=== PATIENT | female | born 1980 | race Caucasian/White ===

== ENCOUNTER → 2019-07-02 14:19 | Outpatient (CLI) | payer OTHER, SELFPAY ==
--- NOTE | 2019-07-02 | DI.US.S_ITS ---
PROCEDURE: US OB >= 14 WEEKS FETUS INDICATIONS: 20 WEEK ANATOMICAL SURVEY OUTSIDE/PRIOR DATING DATA: Last menstrual period (LMP): 02/16/19. LMP-based estimated date of delivery (MARLENE): 11/24/19. First dating scan (date and location): Unknown date and location. Estimated date of delivery (MARLENE) from first dating scan: 11/22/19. TECHNIQUE: Real-time scanning was performed of the fetus, with image documentation and biometric measurements. Endovaginal scanning: None COMPARISON: None. FINDINGS: General: A single living intrauterine gestation is present. Presentation: Vertex Placenta: Placental position is anterior, without previa. Amniotic fluid index: 10.9 cm, normal range is 5-24 cm. heart rate: 149 beats per minute. Maternal cervical canal: 3.0 cm long. Normal lower limit is 2.5 c biometrics: Biparietal diameter: 4.1 cm, 18 weeks 3 days Head circumference: 16.1 cm, 18 weeks 6 days Abdominal circumference: 14.9 cm, 20 weeks one day Femur length: 3.0 cm, to 19 weeks 2 days Estimated gestational age from initial scan: Based on history given, 19 weeks 4 days Composite gestational age from present scan: 19 weeks one day Estimated weight and percentile: 303 g, 48 Measurement variability for biometric dating: +/- 7 days from 14 weeks to 15 weeks 6 days gestation, +/- 10 days from 16 weeks to 21 weeks 6 days gestation, +/- 2 weeks from 22 weeks to 27 weeks 6 days gestation, +/- 3 weeks for 28 weeks gestation or later. weight reference: 4500 g or EFW >90/95% is considered macrosomia or large for gestational age. EFW <10% is small for gestational age. EFW 5% or less is considered intra-uterine growth restriction. Anatomic survey: Neuro: Ventricles are non-dilated at less than 10 mm. Cisterna magna is normal at 3-11 mm. Cerebellum is normal in size and morphology. Nuchal skin fold: Normal at less than 6 mm between 14-21 weeks gestational age. Face: Nose and lips, facial profile are normal. Spine: No evidence for spina bifida. Heart: 4-chambered heart is present, with normal ventricular outflow tracts. Diaphragm: Diaphragm is intact. Stomach: Left-sided stomach is present. Kidneys: No hydronephrosis. Normal is less than 5 mm in 2nd trimester, less than 7 mm in 3rd trimester. Cord: 3-vessel cord has orthotopic insertion. Bladder: Normal in size. Extremities: All 4 extremities identified. IMPRESSION: 1. Living second trimester intrauterine with normal anatomical survey. 2. Unremarkable placenta. 3. Current ultrasound age is 19 weeks one day. Dictated by: Fabian Lora M.D. on 07/03/2019 at 18:54 Approved by: Fabian Lora M.D. on 07/03/2019 at 19:00
== END ==
PROVIDERS: Visit Provider Nurse Practitioner Obstetrics & Gynecology
DX: Z36.89 Encounter for other specified antenatal screening (principal); Z3A.19 19 weeks gestation of pregnancy
CPT/HCPCS: 76811

== ENCOUNTER 2019-07-17 19:38 | Outpatient (CLI) | payer OTHER, SELFPAY ==
--- NOTE | 2019-07-17 19:52 | DI.US.S_ITS ---
PROCEDURE: US OB TRANSVAGINAL INDICATIONS: PRE-TERM CONTRACTIONS OUTSIDE/PRIOR DATING DATA: Last menstrual period (LMP): 02/16/19. LMP-based estimated date of delivery (MARLENE): 11/24/19. First dating scan (date and location): Outside examination, not available. Estimated date of delivery (MARLENE) from first dating scan: 11/22/19. TECHNIQUE: Real-time scanning was performed of the fetus, with image documentation. Endovaginal scanning: Performed COMPARISON: [facility], OB >= 14 WEEKS FETUS, 07/02/2019, 14:27. FINDINGS: A single living intrauterine gestation is present. Presentation: Vertex. Placenta: Placental position is anterior, without previa. Amniotic fluid index: 8.8 cm, normal range is 5-24 cm. heart rate: 128 beats per minute. Maternal cervical canal: 3.8 cm long. Normal lower limit is 2.5 cm. Estimated gestational age from initial scan: 21 weeks 2 days. IMPRESSION: Single living intrauterine fetus in vertex presentation Normal cervical length measuring 3.8 cm as above Normal GERARDO Dictated by: Bill Pozo M.D. on 07/17/2019 at 21:02 Approved by: Bill Pozo M.D. on 07/17/2019 at 21:06
--- NOTE | 2019-07-17 20:09 | PM.OBTRLD ---
Visit Information Visit Information Date of evaluation: 07/17/19 Primary OB Provider: Supriya Latham On-call OB Provider: Chitra Madera Reason for Evaluation: Yes pre-term labor Comments/Additional reasons for admission: 38YO @ [id number] by LMP and 8wk US. Has 3cm CL on 19wk US. Has been feeling intermittent uterine cramping in the evenings that eases overnight. This evening the mild cramping was slightly stronger and now c/o pelvic pressure. NO VB or LOF. Has not had intercourse or anything in her vagina in the last 24 hours. Routine PN care w/ CNM w/ repeat CL US pending 07/30/19. next appt 07/30/19. PFSH Family History (Updated 07/17/19 @ 20:35 by Supriya Latham CNM) Mother Hypertension Father Cancer Review of Systems Review of Systems ROS: Yes All systems reviewed with the patient and are negative except as otherwise documented Exam Vital Signs (past 8 hours): BP 133/79, HR 98, T98F Temporal OB/External & Speculum: external exam normal and other (Os closed) Presentation: vertex Other: fFN collected, but not sent Objective Imaging OB US transvaginal cervical length: My impression: CL 3.8cm, GERARDO 8.8cm Labs Labs: UA pending, RN to call if abnormal. Evaluation Evaluation Baseline heart rate: 140 Diagnosis, Plan/Disposition Final Diagnosis (1) contractions: Current Visit: Yes Status: Acute Problem details: None seen on monitor and CL stable, labor ruled out. Plan/Disposition Plan: Counseled on stable cervical length and setting this as her new baseline normal. Encouraged her to call if contractions strengthen or become more frequent. Reviewed warning sx and when to call. RTC as previously scheduled. OB Disposition: home
[2019-07-17 20:53] LABS: Appearance Urine UA CLEAR; Bilirubin Urine UA NEGATIVE (NEGATIVE); Color Urine UA YELLOW; Glucose Urine UA NEGATIVE (Negative); Ketones Urine UA NEGATIVE (NEGATIVE); Leukocyte Esterase Urine UA NEGATIVE (NEGATIVE); Nitrite Urine UA NEGATIVE (Negative); Occult Blood Urine UA NEGATIVE (Negative); Protein Urine UA NEGATIVE (Negative); Urobilinogen Urine UA 0.2 E.U./dL (0.2)
== END 2019-07-17 21:00 | disposition home or self-care (01) ==
LOC: OB 07-20 11:31
PROVIDERS: Referring Provider Nurse Practitioner Obstetrics & Gynecology; Visit Provider Nurse Practitioner Obstetrics & Gynecology
DX: O47.02 False labor before 37 completed weeks of gestation, second trimester (principal); Z3A.21 21 weeks gestation of pregnancy
CPT/HCPCS: 59050; 76817; 81003; G0378; G0379

== ENCOUNTER → 2019-07-30 09:01 | Outpatient (CLI) | payer OTHER, SELFPAY ==
--- NOTE | 2019-07-30 | DI.US.S_ITS ---
PROCEDURE: US OB TRANSVAGINAL INDICATIONS: CERVICAL LENGTH OUTSIDE/PRIOR DATING DATA: Last menstrual period (LMP): 02/16/19. LMP-based estimated date of delivery (MARLENE): 11/24/19. First dating scan (date and location): Unknown date and location. Estimated date of delivery (MARLENE) from first dating scan: 11/22/19. TECHNIQUE: Real-time scanning was performed of the fetus, with image documentation. Endovaginal scanning: Was done for better visualization of the cervix COMPARISON: [facility], OB TRANSVAGINAL, 07/17/2019, 20:12. [facility], OB >= 14 WEEKS FETUS, 07/02/2019, 14:27. FINDINGS: A single live intrauterine gestation is present. Presentation: Vertex. heart rate: 147 beats per minute. Maternal cervical canal: 4 cm long. Normal lower limit is 2.5 cm. Estimated gestational age from initial scan: 23 weeks 1 day. IMPRESSION: The cervix measures 4 cm. Dictated by: Armando Hodge M.D. on 07/30/2019 at 9:40 Approved by: Armando Hodge M.D. on 07/30/2019 at 9:42
== END ==
PROVIDERS: Referring Provider Nurse Practitioner Obstetrics & Gynecology; Visit Provider Nurse Practitioner Obstetrics & Gynecology
DX: Z36.86 Encounter for antenatal screening for cervical length (principal); Z3A.23 23 weeks gestation of pregnancy
CPT/HCPCS: 76817

== ENCOUNTER → 2019-08-24 08:54 | Outpatient (CLI) | payer OTHER, SELFPAY ==
[2019-08-24 09:49] LABS: Hematocrit 35.3 % (36-46); Hemoglobin 11.9 g/dL (12.0-16.0); Mean Corpuscular HGB Conc 33.7 % (30-36); Mean Corpuscular Hemoglobin 29.2 PG (26-34); Mean Corpuscular Volume 86.7 fL (80-100); Platelet Count 317 X10^3/uL (150-400); Red Blood Cell Count 4.07 X10^6/uL (4.0-5.2); Red Cell Distribution Width 13.1 % (11.6-14.8); White Blood Cell Count 12.7 X10^3/uL (4.5-11.0)
[2019-08-24 11:19] LABS: Glucose Tol Interpretation INTERPRETATION
[2019-08-24 11:36] LABS: Glucose 1 Hour 167 mg/dL (70-170)
[2019-08-24 11:36] LABS: Glucose Fasting 90 mg/dL (70-100)
[2019-08-24 12:39] LABS: Glucose 2 Hour 118 mg/dL (70-140)
== END ==
PROVIDERS: Referring Provider Nurse Practitioner Obstetrics & Gynecology; Visit Provider Nurse Practitioner Obstetrics & Gynecology
DX: Z34.90 Encounter for supervision of normal pregnancy, unspecified, unspecified trimester (principal); Z13.1 Encounter for screening for diabetes mellitus; Z3A.26 26 weeks gestation of pregnancy
CPT/HCPCS: 36415; 82951; 82952; 85027; 86850

== ENCOUNTER → 2019-10-27 12:03 | Outpatient (CLI) | payer OTHER, SELFPAY ==
--- NOTE | 2019-10-27 | DI.US.S_ITS ---
PROCEDURE: US OB LIMITED INDICATIONS: SIZE GREATER THEN DATES OUTSIDE/PRIOR DATING DATA: Last menstrual period (LMP): 02/16/19. LMP-based estimated date of delivery (MARLENE): 11/24/19. First dating scan (date and location): Not available. Estimated date of delivery (MARLENE) from first dating scan: Not available. TECHNIQUE: Real-time scanning was performed of the fetus, with image documentation and biometric measurements. Endovaginal scanning: Not needed for this study COMPARISON: None. FINDINGS: General: A single living intrauterine gestation is present. Presentation: Vertex. Placenta: Placental position is anterior, without previa. Amniotic fluid index: 17.5 cm, normal range is 5-24 cm. heart rate: 165 beats per minute. Maternal cervical canal: 3.3 cm long. Normal lower limit is 2.5 cm. biometrics: Biparietal diameter: 8.3 cm, 33 weeks 5 days Head circumference: 31.4 cm, 35 weeks 4 days Abdominal circumference: 32.9 cm, 36 weeks 5 days Femur length: 6.9 cm, 35 weeks 5 days Estimated gestational age from initial scan: 35 weeks 6 days Composite gestational age from present scan: 35 weeks 3 days Estimated weight and percentile: 2830 g, 55th percentile for current gestational age Measurement variability for biometric dating: +/- 7 days from 14 weeks to 15 weeks 6 days gestation, +/- 10 days from 16 weeks to 21 weeks 6 days gestation, +/- 2 weeks from 22 weeks to 27 weeks 6 days gestation, +/- 3 weeks for 28 weeks gestation or later. weight reference: 4500 g or EFW >90/95% is considered macrosomia or large for gestational age. EFW <10% is small for gestational age. EFW 5% or less is considered intra-uterine growth restriction. Other: Not applicable. IMPRESSION: Single living intrauterine gestation with appropriate interval growth, with normal amniotic fluid volume. Vertex presentation, anterior placenta. Dictated by: Felipe Neves M.D. on 10/27/2019 at 14:07 Approved by: Felipe Neves M.D. on 10/27/2019 at 14:10
== END ==
PROVIDERS: Referring Provider Nurse Practitioner Obstetrics & Gynecology; Visit Provider Nurse Practitioner Obstetrics & Gynecology
DX: Z36.88 Encounter for antenatal screening for fetal macrosomia (principal); Z3A.35 35 weeks gestation of pregnancy
CPT/HCPCS: 76815

== ENCOUNTER → 2019-10-28 13:48 | Outpatient (ROUT) | payer OTHER, SELFPAY | PROVIDERS: Visit Provider Nurse Practitioner Obstetrics & Gynecology | DX: Z36.85 Encounter for antenatal screening for Streptococcus B (principal); Z3A.36 36 weeks gestation of pregnancy | CPT/HCPCS: 87081 ==

== ENCOUNTER 2019-10-28 14:01 | Outpatient (CLI) | payer OTHER, SELFPAY ==
[2019-10-28 14:37] LABS: Add Manual Diff / Slide Review NO; Basophils Absolute Auto 100 /uL (0-100); Basophils Percent Auto 0.6 % (0-2); Eosinophils Absolute Auto 200 /uL (0-450); Eosinophils Percent Auto 1.9 % (2-4); Hematocrit 34.9 % (36-46); Hemoglobin 11.7 g/dL (12.0-16.0); Lymphocytes Absolute Auto 2700 /uL (1100-4500); Mean Corpuscular HGB Conc 33.4 % (30-36); Mean Corpuscular Hemoglobin 28.6 PG (26-34); Mean Corpuscular Volume 85.7 fL (80-100); Monocytes Absolute Auto 600 /uL (0-900); Monocytes Percent Auto 6.8 % (3-14); Neutrophils Absolute Auto 5000 /uL (1500-7000); Neutrophils Percent Auto 58.7 % (50-75); Platelet Count 232 X10^3/uL (150-400); Red Blood Cell Count 4.08 X10^6/uL (4.0-5.2); Red Cell Distribution Width 14.5 % (11.6-14.8); White Blood Cell Count 8.6 X10^3/uL (4.5-11.0)
[2019-10-28 14:44] LABS: Prothrombin Time 11.1 SECONDS (10.1-12.7)
[2019-10-28 14:46] LABS: PTT Partial Thromboplastin Tim 27 SECONDS (26.4-36.2)
[2019-10-28 14:49] LABS: Alanine Aminotransferase 17 IU/L (<35); Albumin 3.4 g/dL (3.5-5.0); Albumin Globulin Ratio 1.1 (1.0-2.8); Alkaline Phosphatase 250 U/L (38-126); Aspartate Aminotransferase 31 IU/L (14-36); BUN Creatinine Ratio 18.9 (6-22); Bilirubin Total 0.3 mg/dL (0.2-1.3); Bilirubin Unconjugated 0.2 mg/dL (0.0-1.1); Blood Urea Nitrogen 14 mg/dL (7-17); Calcium 9.8 mg/dL (8.4-10.2); Carbon Dioxide 21 mmol/L (22-32); Chloride 105 mmol/L (98-107); Estimated Glomerular Filt Rate > 60.0 mL/min (>60); Globulin 3.2 g/dL (1.7-4.1); Glucose 99 mg/dL (70-100); HEMOLYSIS < 15 (0-50); Potassium 4.4 mmol/L (3.4-5.1); Sodium 133 mmol/L (137-145); Total Protein 6.6 g/dL (6.3-8.2); Uric Acid 7.1 mg/dL (2.5-6.2)
[2019-10-28 15:13] LABS: Appearance Urine UA CLEAR; Bilirubin Urine UA NEGATIVE (NEGATIVE); Color Urine UA YELLOW; Glucose Urine UA NEGATIVE (Negative); Ketones Urine UA NEGATIVE (NEGATIVE); Leukocyte Esterase Urine UA 1+ (NEGATIVE); Nitrite Urine UA NEGATIVE (Negative); Occult Blood Urine UA TRACE-INTACT (Negative); Protein Urine UA 1+ (Negative); Urobilinogen Urine UA 0.2 E.U./dL (0.2)
[2019-10-28 15:28] LABS: pH Urine UA 5.5 (4.5-8.0)
[2019-10-28 15:30] LABS: Bacteria Urine Moderate (10-30); RBC Urine 0-1/HPF (0-5/HPF); Transitional Epi Cells Urine 1-5/HPF (0-5/HPF)
[2019-10-28 15:31] LABS: Culture Indicated Urine Specimen Cultured; Squamous Epithelial Cell Urine 1-5 /HPF (0-5/HPF); WBC Urine 5-10/HPF (0-5/HPF)
--- NOTE | 2019-10-28 15:31 | PM.OBTRLD ---
Visit Information Visit Information Date of evaluation: 10/28/19 Primary OB Provider: Supriya Latham On-call OB Provider: Steffi Ruth Reason for Evaluation: Yes other Comments/Additional reasons for admission: 38YO @[id number] by LMP and 8wk US presents for evaluation after elevated BPs in clinic. No AVELAR, vision changes, RUQ pain or increased edema. PFSH Family History Mother Hypertension Father Cancer Review of Systems Review of Systems ROS: Yes All systems reviewed with the patient and are negative except as otherwise documented Exam Vital Signs (past 8 hours): Serial BPs: 142/90, 137/83, 131/80, 174/86, 121/69; HR 71bpm, T36.3C Temporal Uterus Location (Fundal Height): 38 Presentation: vertex Estimated Weight (lbs): 6 Objective Labs Result Diagrams: 10/28/19 14:28 10/28/19 14:28 Labs: Laboratory Results - last 24 hr 10/28/19 10/28/19 10/28/19 14:28 14:28 14:28 WBC 8.6 RBC 4.08 Hgb 11.7 L Hct 34.9 L MCV 85.7 MCH 28.6 MCHC 33.4 RDW 14.5 Plt Count 232 Neut % (Auto) 58.7 Lymph % (Auto) 32.0 [place] % (Auto) 6.8 Eos % (Auto) 1.9 L Baso % (Auto) 0.6 Neut # (Auto) 5000 Lymph # (Auto) 2700 [place] # (Auto) 600 Eos # (Auto) 200 Baso # (Auto) 100 PT 11.1 INR 1.0 APTT 27 Sodium 133 L Potassium 4.4 Chloride 105 Carbon Dioxide 21 L BUN 14 Creatinine 0.74 Estimated GFR > 60.0 BUN/Creatinine Ratio 18.9 Glucose 99 Uric Acid 7.1 H Calcium 9.8 Total Bilirubin 0.3 Conjugated Bilirubin 0.0 Unconjugated Bilirubin 0.2 AST 31 ALT 17 Alkaline Phosphatase 250 H Total Protein 6.6 Albumin 3.4 L Globulin 3.2 Albumin/Globulin Ratio 1.1 Urine Color Urine Appearance Urine pH Ur Specific [place] Urine Protein Urine Glucose (UA) Urine Ketones Urine Occult Blood Urine Nitrate Urine Bilirubin Urine Urobilinogen Ur Leukocyte Esterase Urine RBC Urine WBC Ur Squamous Epith Cells Ur Transition Epith Cell Urine Bacteria Ur Culture Indicated? 10/28/19 14:50 WBC RBC Hgb Hct MCV MCH MCHC RDW Plt Count Neut % (Auto) Lymph % (Auto) [place] % (Auto) Eos % (Auto) Baso % (Auto) Neut # (Auto) Lymph # (Auto) [place] # (Auto) Eos # (Auto) Baso # (Auto) PT INR APTT Sodium Potassium Chloride Carbon Dioxide BUN Creatinine Estimated GFR BUN/Creatinine Ratio Glucose Uric Acid Calcium Total Bilirubin Conjugated Bilirubin Unconjugated Bilirubin AST ALT Alkaline Phosphatase Total Protein Albumin Globulin Albumin/Globulin Ratio Urine Color Yellow Urine Appearance Clear Urine pH 5.5 Ur Specific [place] 1.020 Urine Protein 1+ H Urine Glucose (UA) Negative Urine Ketones Negative Urine Occult Blood Trace-intact Urine Nitrate Negative Urine Bilirubin Negative Urine Urobilinogen 0.2 Ur Leukocyte Esterase 1+ H Urine RBC 0-1/hpf Urine WBC 5-10/hpf H Ur Squamous Epith Cells 1-5 /hpf Ur Transition Epith Cell 1-5/hpf Urine Bacteria Moderate (10-30) H Ur Culture Indicated? Specimen cultured Evaluation Evaluation Baseline heart rate: 135 Variability: Moderate (11-25) monitor accelerations: Present monitor decelerations: Absent Contraction Frequency (minutes): 15 Uterine Contraction Intensity: Mild Category of Tracing: I Cervical dilation (cm): 1 Cervical effacement (%): 40 station: -3 Laboratory results: Laboratory Tests 10/28/19 10/28/19 10/28/19 14:28 14:28 14:28 WBC 8.6 RBC 4.08 Hgb 11.7 L Hct 34.9 L MCV 85.7 MCH 28.6 MCHC 33.4 RDW 14.5 Plt Count 232 Neut % (Auto) 58.7 Lymph % (Auto) 32.0 [place] % (Auto) 6.8 Eos % (Auto) 1.9 L Baso % (Auto) 0.6 Neut # (Auto) 5000 Lymph # (Auto) 2700 [place] # (Auto) 600 Eos # (Auto) 200 Baso # (Auto) 100 PT 11.1 INR 1.0 APTT 27 Sodium 133 L Potassium 4.4 Chloride 105 Carbon Dioxide 21 L BUN 14 Creatinine 0.74 Estimated GFR > 60.0 BUN/Creatinine Ratio 18.9 Glucose 99 Uric Acid 7.1 H Calcium 9.8 Total Bilirubin 0.3 Conjugated Bilirubin 0.0 Unconjugated Bilirubin 0.2 AST 31 ALT 17 Alkaline Phosphatase 250 H Total Protein 6.6 Albumin 3.4 L Globulin 3.2 Albumin/Globulin Ratio 1.1 Urine Color Urine Appearance Urine pH Ur Specific [place] Urine Protein Urine Glucose (UA) Urine Ketones Urine Occult Blood Urine Nitrate Urine Bilirubin Urine Urobilinogen Ur Leukocyte Esterase Urine RBC Urine WBC Ur Squamous Epith Cells Ur Transition Epith Cell Urine Bacteria Ur Culture Indicated? 10/28/19 14:50 WBC RBC Hgb Hct MCV MCH MCHC RDW Plt Count Neut % (Auto) Lymph % (Auto) [place] % (Auto) Eos % (Auto) Baso % (Auto) Neut # (Auto) Lymph # (Auto) [place] # (Auto) Eos # (Auto) Baso # (Auto) PT INR APTT Sodium Potassium Chloride Carbon Dioxide BUN Creatinine Estimated GFR BUN/Creatinine Ratio Glucose Uric Acid Calcium Total Bilirubin Conjugated Bilirubin Unconjugated Bilirubin AST ALT Alkaline Phosphatase Total Protein Albumin Globulin Albumin/Globulin Ratio Urine Color Yellow Urine Appearance Clear Urine pH 5.5 Ur Specific [place] 1.020 Urine Protein 1+ H Urine Glucose (UA) Negative Urine Ketones Negative Urine Occult Blood Trace-intact Urine Nitrate Negative Urine Bilirubin Negative Urine Urobilinogen 0.2 Ur Leukocyte Esterase 1+ H Urine RBC 0-1/hpf Urine WBC 5-10/hpf H Ur Squamous Epith Cells 1-5 /hpf Ur Transition Epith Cell 1-5/hpf Urine Bacteria Moderate (10-30) H Ur Culture Indicated? Specimen cultured Diagnosis, Plan/Disposition Final Diagnosis (1) Elevated blood pressure reading in office with diagnosis of hypertension: Status: Acute Problem details: Counseled patient on likely developing pre-eclampsia w/ recommendation for IOL @ 37wks if diagnosis made. No diagnosis today with BPs that trended to normal. Home BP cuff given with instructions for use. Reviewed warning sx and when to call. F/U in 3 days, as scheduled, for repeat BP check in office. Plan/Disposition OB Disposition: home
[2019-10-28 15:59] LABS: Creatinine Urine Random 100.9 mg/dL; Protein (Total) Urine Random 72 mg/dL (0-12); Protein Creatinine Ratio Urine 0.71 GRAM/24H
== END 2019-10-28 15:55 | disposition home or self-care (01) ==
LOC: LABOR 19:43 → OB 10-30 12:43
PROVIDERS: Referring Provider Nurse Practitioner Obstetrics & Gynecology; Visit Provider Nurse Practitioner Obstetrics & Gynecology
DX: O26.893 Other specified pregnancy related conditions, third trimester (principal); Z3A.38 38 weeks gestation of pregnancy; R03.0 Elevated blood-pressure reading, without diagnosis of hypertension
CPT/HCPCS: 36415; 59025; 80053; 80076; 81001; 82570; 84156; 84550; 85025; 85610; 85730; 87081; 87086; G0378; G0379

== ENCOUNTER → 2019-10-31 13:03 | Outpatient (ROUT) | payer OTHER, SELFPAY ==
[2019-10-31 13:16] LABS: Add Manual Diff / Slide Review NO; Basophils Absolute Auto 0 /uL (0-100); Basophils Percent Auto 0.4 % (0-2); Eosinophils Absolute Auto 200 /uL (0-450); Eosinophils Percent Auto 2.9 % (2-4); Hematocrit 36.6 % (36-46); Hemoglobin 12.1 g/dL (12.0-16.0); Lymphocytes Absolute Auto 2800 /uL (1100-4500); Lymphocytes Percent Auto 32.1 % (25-40); Mean Corpuscular HGB Conc 33.1 % (30-36); Mean Corpuscular Hemoglobin 28.5 PG (26-34); Mean Corpuscular Volume 86.3 fL (80-100); Monocytes Absolute Auto 500 /uL (0-900); Monocytes Percent Auto 5.2 % (3-14); Neutrophils Absolute Auto 5100 /uL (1500-7000); Neutrophils Percent Auto 59.4 % (50-75); Platelet Count 251 X10^3/uL (150-400); Red Blood Cell Count 4.24 X10^6/uL (4.0-5.2); Red Cell Distribution Width 14.4 % (11.6-14.8); White Blood Cell Count 8.6 X10^3/uL (4.5-11.0)
[2019-10-31 13:35] LABS: Aspartate Aminotransferase 36 IU/L (14-36); BUN Creatinine Ratio 20.8 (6-22); Blood Urea Nitrogen 16 mg/dL (7-17); Estimated Glomerular Filt Rate > 60.0 mL/min (>60); Uric Acid 8.1 mg/dL (2.5-6.2)
[2019-10-31 14:46] LABS: Creatinine Urine Random 67.3 mg/dL; Protein (Total) Urine Random 79 mg/dL (0-12); Protein Creatinine Ratio Urine 1.17 GRAM/24H
== END ==
PROVIDERS: Visit Provider Nurse Practitioner Obstetrics & Gynecology
DX: O26.893 Other specified pregnancy related conditions, third trimester (principal); R03.0 Elevated blood-pressure reading, without diagnosis of hypertension; Z3A.36 36 weeks gestation of pregnancy
CPT/HCPCS: 82570; 84156; 84450; 84550; 85025

== ENCOUNTER 2019-11-02 18:10 | Inpatient (IN) | payer OTHER, SELFPAY ==
--- NOTE | 2019-11-02 18:57 | PM.OBHP.1 ---
OB HPI Date/Time Date of admission: 11/02/19 Date Patient Seen: 11/02/19 Time Patient Seen: 18:30 History of Present Condition Chief complaint: : 2 Para: 0 Estimated Date of Delivery: 11/24/19 Estimated Gestational Age (weeks): 36.6 Narrative: Zeechalo Hobbs is a 38 year old female @ [id number] by sure LMP and 8wk US who presents for admission for cervical ripening for IOL 11/03/19 @ 37wks. was uncomplicated until BPs began rising @ 36wks w/ diagnosis of preeclampsia and started on labetalol 10/31/2019 w/ a consultation w/ at that time. Indications Indication for induction OB: medical complication History of Present care: good care Dating criteria: LMP confirmed by 1st trimester US Ultrasounds: normal mid trimester US Obstetrical complications: preeclampsia Preadmission Labs Blood type: 0 (-) negative -: Antibody screen: negative, GBS status: negative, HBsAG: negative, HIV: negative and RPR/VDLR: negative -: Chlamydia screen: not detected and Gonorrhea screen: not detected -: Rubella: immune HCT: 35.3 HCAB: negative Cell-free DNA: negative, female 3 hr GTT: 2 hr (90/167/118) Narrative: 10/27/2019: Normal 36wk growth US for S>D- Vertex, GERARDO 17.5cm, anterior placenta without previa, EFW 2830grams/55th% Prior (ies) History: 12/21/2018- SAB @ 6wks Evaluation Evaluation Baseline heart rate: 140 Variability: Moderate (11-25) monitor accelerations: Absent monitor decelerations: Absent Contraction Frequency (minutes): 0 Uterine Contraction Intensity: Mild Category of Tracing: I Cervical dilation (cm): 1 Cervical effacement (%): 40 station: -3 PFSH Family History Mother Hypertension Father Cancer Meds Home Medications and Allergies Home Medications Medication Instructions Recorded Confirmed Type labetalol 11/02/19 History Allergies Allergy/AdvReac Type Severity Reaction Status Date / Time cephalexin Allergy Mild rash Verified 11/02/19 19:09 Review of Systems Review of Systems ROS: Yes All systems reviewed with the patient and are negative except as otherwise documented Exam Vital Signs (past 8 hours): BP 134/90, HR-93bpm, T96.8F Temporal Presentation: vertex Objective Labs Labs: Preeclampsia panel from 10/31/19: Hgb/Hct-12.1/36.3 Plt-251 Creatinine-0.77 Uric acid-8.1 AST-36 Pr:Cr-1.17 Assessment and Plan Assessment and Plan Assessment and Plan narrative: A: Term primipara AMA Preeclampsia No indication for GBS prophylaxis Cat I FHR P: Informed consent for IOL for preeclampsia obtained. Patient unable to tolerate cervical exam or meza balloon placement. Will place Cervadil overnight and encourage rest. Continuous EFM w/ Cervadil. Continue labetalol 100mg PO BID. Labs and IV @ 0600 tomorrow morning. Reassess in AM. /OB back-up notified of admission and plan of care.
[2019-11-02] MEDS: DINOPROSTONE VAG (CERVIDIL) 10 MG VAG (19:34)
[2019-11-02 21:35] VITALS: BP 134/87; PULSE 87
[2019-11-02] MEDS: LABETALOL 100 MG TABLET PO (21:35)
[2019-11-02 21:49] LABS: COVID19 -Nasal RAPID Negative (Negative)
[2019-11-02 23:06] VITALS: BP 139/91
[2019-11-03 05:57] LABS: Add Manual Diff / Slide Review NO; Basophils Absolute Auto 0 /uL (0-100); Basophils Percent Auto 0.5 % (0-2); Eosinophils Absolute Auto 200 /uL (0-450); Eosinophils Percent Auto 2.2 % (2-4); Hematocrit 32.7 % (36-46); Hemoglobin 11.2 g/dL (12.0-16.0); Lymphocytes Absolute Auto 3300 /uL (1100-4500); Lymphocytes Percent Auto 37.5 % (25-40); Mean Corpuscular HGB Conc 34.3 % (30-36); Mean Corpuscular Hemoglobin 29.6 PG (26-34); Mean Corpuscular Volume 86.3 fL (80-100); Monocytes Absolute Auto 700 /uL (0-900); Monocytes Percent Auto 7.4 % (3-14); Neutrophils Absolute Auto 4700 /uL (1500-7000); Neutrophils Percent Auto 52.4 % (50-75); Platelet Count 224 X10^3/uL (150-400); Red Blood Cell Count 3.79 X10^6/uL (4.0-5.2); White Blood Cell Count 8.9 X10^3/uL (4.5-11.0)
[2019-11-03 06:02] LABS: Aspartate Aminotransferase 35 IU/L (14-36); BUN Creatinine Ratio 16.7 (6-22); Blood Urea Nitrogen 13 mg/dL (7-17); Estimated Glomerular Filt Rate > 60.0 mL/min (>60); Uric Acid 7.3 mg/dL (2.5-6.2)
--- NOTE | 2019-11-03 08:27 | PM.OBPNLAB ---
Date/Time Date Patient Seen: 11/03/19 Time Patient Seen: 08:20 Pain Control Pain control: tolerating well Comments: Patient remain comfortable, unaware of contractions at this time. VS: BP 143/83, [id number], RR16/min, T36.1C Temporal Pelvic Exam Dilation (cm): 1 Effacement (%): 50 station: -3 Amniotic membrane status: Intact Contractions Contractions on admission: irregular Monitor mode: External Pitocin rate (mU/min): 0 Contraction frequency (min): 4 Contraction pattern: Irregular Contraction intensity: Mild Status status: Category l Heart Rate Baseline: 125 Monitor Accelerations: Present Monitor Decelerations: Absent Monitor Variability: Moderate Assessment and Plan Assessment: induction ongoing Comments: Continue cervical ripening w/ misoprostil Q4 hours. Will reassess after 3-4 doses or after 2 hours of uncomfortable contractions.
[2019-11-03 08:47] VITALS: BP 137/76; PULSE 54
[2019-11-03] MEDS: LABETALOL 100 MG TABLET PO (08:47)
[2019-11-03] MEDS: miSOPROStoL 25 MCG TABLET 50 MCG PO ×2 (09:10→13:00)
--- NOTE | 2019-11-03 14:17 | P.PNOB_ITS ---
Date/Time Date Patient Seen: 11/03/19 Time Patient Seen: 14:00 Pain Control Pain control: tolerating well Comments: Patient sleeping through mild contractions. Has been bothered by bilateral hand numbness and tingling, improved w/ ice packs. VS: BP-155/95, HR81, T36.5C Temporal Meds: Cervadil 11/02/19 @ 1940 Misoprostil 50mcg SL #1 11/03/19 @ 0910 Misoprostil 50mcg SL #2 11/03/19 @ 1300 Pelvic Exam Dilation (cm): 1 Effacement (%): 50 station: -3 Amniotic membrane status: Intact Contractions Monitor mode: External Pitocin rate (mU/min): 0 Contraction frequency (min): 1 Contraction duration (min): 1 Contraction pattern: Irregular Contraction intensity: Mild Status status: Category l Heart Rate Baseline: 150 Monitor Accelerations: Present Monitor Decelerations: Absent Monitor Variability: Minimal Comments: Periods of moderate variability, primarily minimal over last 2 hours. Assessment and Plan Assessment: induction ongoing Plan: continuous present management Comments: CE deferred as patient is not uncomfortable w/ contractions. Continue labetalol 100mg BID and Q24hr preeclampsia panel. Encouraged balanced rest and activity this afternoon w/ birthing ball and ambulation strongly recommended. Plan to continue misoprostil Q4 hours for up to 6 doses. Will recheck after 4 doses. OB back-up/[place] notified of patient status and plan of care, verbalized agreement.
[2019-11-03] MEDS: fentaNYL 100 MCG/2 ML INJ IV (17:13)
--- NOTE | 2019-11-03 17:36 | PM.OBPNLAB ---
Date/Time Date Patient Seen: 11/03/19 Time Patient Seen: 17:20 Pain Control Pain control: narcotic analgesia Comments: Mild discomfort only with contractions. Continues to be unable to tolerate cervical exams, requesting pain medication for CE and/or Meza balloon placement. VS: 140/78, [id number], T35.7C Temporal Pelvic Exam Dilation (cm): 1 Effacement (%): 50 station: -3 Amniotic membrane status: Intact Contractions Contractions on admission: irregular Monitor mode: External Contraction frequency (min): 3 Contraction duration (min): 1 Contraction pattern: Irregular Contraction intensity: Mild Status status: Category ll Heart Rate Baseline: 150 Monitor Accelerations: Present Monitor Decelerations: Variable Monitor Variability: Moderate Assessment and Plan Assessment: induction ongoing Comments: Discussed tachysystole with minimal variability w/ mispoprostil and no recommendation for additional misoprostil. Offered IV fentanyl vs NO2 for CE and recommend repeat attempt of meza balloon placement. Patient consented to meza balloon placement after IV fentanyl which was administered. Meza balloon placed and inflated w/ 50mL NS. Patient did not tolerate the procedure well, denies continued pain after placement. Encouraged rest overnight. Q 4 hr NST and Q2 hr BPs overnight. Plan pitocin and repeat labs in am.
--- NOTE | 2019-11-03 23:09 | PM.OBPNLAB ---
Date/Time Date Patient Seen: 11/03/19 Time Patient Seen: 23:10 Pain Control Pain control: tolerating well Comments: Patient trying to get some sleep. VS: BP 141/87, [id number], T35.4C Temporal Pelvic Exam Dilation (cm): 1 Effacement (%): 50 station: -3 Amniotic membrane status: Intact Comments: Villeda balloon still in place, CE deferred. Contractions Contractions on admission: irregular Monitor mode: External Pitocin rate (mU/min): 0 Contraction frequency (min): 3 Contraction duration (min): 1 Contraction pattern: Irregular Contraction intensity: Mild Status status: Category ll Heart Rate Baseline: 150 Monitor Accelerations: Absent Monitor Decelerations: Absent Monitor Variability: Minimal Assessment and Plan Assessment: induction ongoing Plan: continuous present management Comments: Continuous EFM as there are no accels during this NST period. Will continue to monitor closely. Reassess in 2-4 hours or sooner, PRN.
--- NOTE | 2019-11-04 03:30 | PM.OBPNLAB ---
Date/Time Date Patient Seen: 11/04/19 Time Patient Seen: 03:20 Pain Control Pain control: tolerating well Comments: C/O inability to completely empty her bladder x 1.5 hours. Does feel relief, just not complete when voiding. Worried it's the Villeda balloon. VS: BP 131/67, HR 77bpm, T36.1C Temporal Pelvic Exam Dilation (cm): 1 Effacement (%): 50 station: -3 Amniotic membrane status: Intact Comments: Deferred, Villeda balloon still in place Contractions Monitor mode: External Contraction frequency (min): 3 Contraction pattern: Irregular Contraction intensity: Mild Status status: Category l Heart Rate Baseline: 135 Monitor Accelerations: Present Monitor Decelerations: Absent Assessment and Plan Assessment: induction ongoing Plan: continuous present management Comments: May switch back to NST [id number]. Labs @ 0600. Discussed options for emptying bladder if unable to void, offered straight cath, declined by patient at this time. Encouraged her to let us know if unable to void. Plan to start pitocin @ 0700.
[2019-11-04 06:54] LABS: Add Manual Diff / Slide Review NO; Basophils Absolute Auto 0 /uL (0-100); Basophils Percent Auto 0.4 % (0-2); Eosinophils Absolute Auto 200 /uL (0-450); Eosinophils Percent Auto 2.1 % (2-4); Hematocrit 36.4 % (36-46); Lymphocytes Absolute Auto 2900 /uL (1100-4500); Lymphocytes Percent Auto 26.2 % (25-40); Mean Corpuscular HGB Conc 33.1 % (30-36); Mean Corpuscular Hemoglobin 28.7 PG (26-34); Mean Corpuscular Volume 86.7 fL (80-100); Monocytes Absolute Auto 800 /uL (0-900); Monocytes Percent Auto 6.9 % (3-14); Neutrophils Absolute Auto 7200 /uL (1500-7000); Neutrophils Percent Auto 64.4 % (50-75); Platelet Count 239 X10^3/uL (150-400); Red Cell Distribution Width 14.7 % (11.6-14.8); White Blood Cell Count 11.2 X10^3/uL (4.5-11.0)
[2019-11-04 06:57] LABS: Aspartate Aminotransferase 38 IU/L (14-36); BUN Creatinine Ratio 19.5 (6-22); Blood Urea Nitrogen 15 mg/dL (7-17); Estimated Glomerular Filt Rate > 60.0 mL/min (>60); Uric Acid 7.1 mg/dL (2.5-6.2)
[2019-11-04 07:55] LABS: Protein (Total) Urine Random 64 mg/dL (0-12); Protein Creatinine Ratio Urine 1.52 GRAM/24H
[2019-11-04] MEDS: LACTATED RINGERS 1,000 ML 100 ML IV (08:23)
[2019-11-04 08:25] VITALS: BP 142/79; PULSE 90
[2019-11-04] MEDS: LABETALOL 100 MG TABLET PO (08:25)
[2019-11-04] MEDS: OXYTOCIN PREMIX 30 UNIT/500 ML PLAST..BAG IV (08:26)
--- NOTE | 2019-11-04 09:55 | PM.OBPNLAB ---
Date/Time Date Patient Seen: 11/04/19 Time Patient Seen: 09:50 Pain Control Pain control: tolerating well Comments: Very sleepy, declines to be out of bed. Tolerating mild contractions well. Able to void several times now without difficulty. VS: BP126/64, [id number], T35.9C temporal. Labetalol 100mg BID last dose @ 0900 Labs: continued slight trend in preeclampsia labs, see labs from 0600 this am. Pr:Cr (1.52) and BPs remain diagnostic for preeclampsia. Pelvic Exam Dilation (cm): 3 Effacement (%): 70 station: -3 Amniotic membrane status: Intact Comments: CE presumed between 3-5cm as Villeda balloon has come out. Given patient's poor tolerance for exams, will defer until 2 hours after uncomfortable contractions occur. Contractions Contractions on admission: irregular Monitor mode: External Pitocin rate (mU/min): 2 Contraction frequency (min): 6 Contraction duration (min): 1 Contraction pattern: Irregular Contraction intensity: Mild Status status: Category ll Heart Rate Baseline: 145 Monitor Accelerations: Present Monitor Decelerations: Late Monitor Variability: Minimal Comments: Occasional late decelerations since 0900. Accelerations in the last hour, but now variability decreased from moderate to minimal. Assessment and Plan Assessment: induction ongoing Plan: continuous present management Comments: Notified RN to hold pitocin @ 2mu/min and give 200mL LR IVFB. if no improvement in 30 minutes, will turn off pitocin. Reassess in 2 hours or sooner, PRN.
--- NOTE | 2019-11-04 13:29 | PM.OBPNLAB ---
Date/Time Date Patient Seen: 11/04/19 Time Patient Seen: 13:30 Pain Control Pain control: tolerating well Comments: Breathing through strong contractions. SROM, clear fluid, occurred at 1045 followed by strengthening contractions, declared strong at 1230. Pelvic Exam Dilation (cm): 3 Effacement (%): 70 station: -3 Amniotic membrane status: Intact Comments: CE deferred, planned for 1430-2 hours from onset of strong contractions VS: BP 143/89, [id number], T35.1C Temporal Contractions Date/Time contractions began: 1230 Contractions on admission: irregular Monitor mode: External Pitocin rate (mU/min): 3 Contraction frequency (min): 3 Contraction duration (min): 1 Contraction pattern: Regular Contraction intensity: Moderate Status status: Category l Heart Rate Baseline: 125 Monitor Accelerations: Present Monitor Decelerations: Absent Monitor Variability: Moderate Comments: BP decreased to 120's/60's after 0900 labetalol dose, followed by period of minimal variability w/ late decelerations that resolved w/ a 200mL IVFB and stopping the pitocin. BP has improved and FHR has returned to Category I. Assessment and Plan Assessment: induction ongoing Plan: continuous present management Comments: Plan to hold PM dose of labetalol as IOL is in progress. Discussed case w/ who verbalized agreement. Continue pitocin titration to adequate contraction pattern. Labor support PRN. Repeat CE @ 1430. Reassess in 4 hours or sooner, PRN.
--- NOTE | 2019-11-04 15:48 | PM.OBPNLAB ---
Date/Time Date Patient Seen: 11/04/19 Time Patient Seen: 15:45 Pain Control Pain control: epidural Comments: Patient requested epidural placement prior to CE. Epidural placed, patient did not tolerate procedure well. Patient now comfortable after epidural placement. Tolerated CE and urinary Villeda catheter placement well. Denies feeling lightheaded, dizzy or nauseous. VS: BP98/54, [id number], T36.4C Temporal Pelvic Exam Dilation (cm): 4 Effacement (%): 80 station: -2 Amniotic membrane status: Leaking Comments: SROM, clear fluid @ 1045 this morning Contractions Date/Time contractions began: 11/04/19 @ 1230 Contractions on admission: irregular Monitor mode: External Pitocin rate (mU/min): 5 Contraction frequency (min): 3 Contraction duration (min): 1 Contraction pattern: Regular Contraction intensity: Moderate Status status: Category ll Heart Rate Baseline: 155 Monitor Accelerations: Absent Monitor Decelerations: Late Monitor Variability: Moderate Comments: late decelerations began shortly after epidural placement and BP drop. Assessment and Plan Assessment: induction ongoing Plan: continuous present management Comments: Work w/ anesthesia provider to improve BP, may give 250mL IVFB. Will consult OB if late decelerations continue after BP improves. Continue pitocin titration to adequate contraction pattern. Reassess in 4 hours or sooner, PRN.
--- NOTE | 2019-11-04 19:49 | P.PNOB_ITS ---
Date/Time Date Patient Seen: 11/04/19 Time Patient Seen: 19:40 Pain Control Pain control: epidural Comments: Patient comfortable w/ epidural. VS: BP 134/83, [id number], T36.6C Temporal Pelvic Exam Dilation (cm): 6 Effacement (%): 90 station: -1 Amniotic membrane status: Leaking Comments: LOP position Contractions Date/Time contractions began: 11/04/19 @ 1230 Contractions on admission: irregular Monitor mode: External Pitocin rate (mU/min): 10 Contraction frequency (min): 5 Contraction duration (min): 2 Contraction pattern: Regular Contraction intensity: Strong/Firm Status status: Category l Heart Rate Baseline: 130 Monitor Accelerations: Present Monitor Decelerations: Absent Monitor Variability: Absent Comments: 1720- period of dystotic labor pattern-5ctx back to back followed by 6 minutes of uterine rest, repeatedly w/ late decelerations. Pitocin was reduced and late decelerations resolved with improved contraction pattern. Assessment and Plan Assessment: induction ongoing Plan: continuous present management Comments: Encourage position changes w/ peanut ball and exaggerated kenney. Continue pitocin titration to adequate contraction pattern. Updated OB back- up/Dr.Foist coelho patient status and plan of care. Reassess in 4 hours or sooner, PRN.
[2019-11-04] MEDS: FENT 2MCG/ML BUPIV 0.125% EPI 200 MCG/100 ML PLAST..BAG 12 MCG EPIDURAL (20:45)
[2019-11-04 23:05] LABS: Platelet Count 241 X10^3/uL (150-400)
--- NOTE | 2019-11-05 02:12 | PM.OBPNLAB ---
Date/Time Date Patient Seen: 11/04/19 Time Patient Seen: 23:00 Pain Control Pain control: epidural Comments: Patient comfortable w/ epidural, feeling occasional rectal pressure Pelvic Exam Dilation (cm): 9 Effacement (%): 90 station: 0 Amniotic membrane status: Leaking Comments: LOP position VS: BP135/75, [id number], T35.9C Temporal Contractions Contractions on admission: irregular Monitor mode: External Pitocin rate (mU/min): 10 Contraction frequency (min): 5 Contraction duration (min): 2 Contraction pattern: Regular Contraction intensity: Strong/Firm Status status: Category l Heart Rate Baseline: 130 Monitor Accelerations: Present Monitor Decelerations: Absent Monitor Variability: Moderate Assessment and Plan Assessment: induction ongoing Plan: continuous present management Comments: Continue position changes and reassess in 3 hours or sooner, PRN.
--- NOTE | 2019-11-05 02:19 | PM.OBPNLAB ---
Date/Time Date Patient Seen: 11/05/19 Time Patient Seen: 02:00 Pain Control Pain control: epidural Comments: Recently had epidural bolus for painful contractions, feeling more rectal pressure Pelvic Exam Dilation (cm): 9 Effacement (%): 100 station: 0 Amniotic membrane status: Leaking Comments: Anterior lip w/ caput at +1 LOP position Contractions Contractions on admission: irregular Monitor mode: External Pitocin rate (mU/min): 13 Contraction frequency (min): 5 Contraction duration (min): 2 Contraction pattern: Regular Contraction intensity: Strong/Firm Status status: Category l Heart Rate Baseline: 140 Monitor Accelerations: Present Monitor Decelerations: Late Monitor Variability: Moderate Comments: Accelerations present w/ scalp stimulation during CE. occasional periods of minimal variability, overall all moderate variability w/ late decelerations w/ 50% of contractions in the last hour Assessment and Plan Assessment: active labor and induction ongoing Plan: continuous present management Comments: Discussed IUPC w/ RN, not needed at this time. Will recheck in 2 hours. Will placed IUPC to evaluate and consult OB if adequate and not complete at that time.
[2019-11-05] MEDS: FENT 2MCG/ML BUPIV 0.125% EPI 200 MCG/100 ML PLAST..BAG 12 MCG EPIDURAL (02:39)
--- NOTE | 2019-11-05 04:24 | PM.OBPNLAB ---
Date/Time Date Patient Seen: 11/05/19 Time Patient Seen: 04:15 Pain Control Pain control: tolerating well and epidural Comments: Patient sleeping, continues to c/o rectal pressure when awake. VS: BP 129/70, CO31ziw, T37.0C Temporal Pelvic Exam Dilation (cm): 9 Effacement (%): 100 station: 0 Amniotic membrane status: Leaking Comments: persistent LOP IUPC placed during exam Contractions Date/Time contractions began: 11/03/19 @ 1230 Contractions on admission: irregular Monitor mode: External Pitocin rate (mU/min): 15 Contraction frequency (min): 2 Contraction duration (min): 1 Contraction pattern: Regular Contraction intensity: Strong/Firm Intrauterine tone measurement: 115 Status status: Category l Heart Rate Baseline: 135 Monitor Accelerations: Present Monitor Decelerations: Absent Monitor Variability: Moderate Assessment and Plan Assessment: active labor and induction ongoing Plan: continuous present management and other Comments: Counseled patient and her on no cervical change or descent in 5 hours w/ recommendation for IUPC to evaluate contraction adequacy: if ctx are adequate, primary for active phase arrest is indicated and if contractions are inadequate more time and pitocin is indicated. Patient agreed to IUPC placement during exam and verbalized understanding of potential need for . Initial MVUs 115. Will allow more time and pitocin and recheck after 2 hours of adequate contractions or sooner, PRN. Will notify OB back-up/ of situation and plan.
[2019-11-05 07:19] LABS: Add Manual Diff / Slide Review NO; Basophils Absolute Auto 100 /uL (0-100); Basophils Percent Auto 0.5 % (0-2); Eosinophils Absolute Auto 100 /uL (0-450); Eosinophils Percent Auto 0.6 % (2-4); Hematocrit 34.1 % (36-46); Hemoglobin 11.4 g/dL (12.0-16.0); Lymphocytes Absolute Auto 2100 /uL (1100-4500); Lymphocytes Percent Auto 13.8 % (25-40); Mean Corpuscular HGB Conc 33.3 % (30-36); Mean Corpuscular Hemoglobin 28.8 PG (26-34); Mean Corpuscular Volume 86.5 fL (80-100); Monocytes Absolute Auto 1100 /uL (0-900); Monocytes Percent Auto 7.1 % (3-14); Neutrophils Absolute Auto 12200 /uL (1500-7000); Platelet Count 229 X10^3/uL (150-400); Red Blood Cell Count 3.95 X10^6/uL (4.0-5.2); White Blood Cell Count 15.6 X10^3/uL (4.5-11.0)
[2019-11-05 07:28] LABS: Aspartate Aminotransferase 48 IU/L (14-36); BUN Creatinine Ratio 16.3 (6-22); Blood Urea Nitrogen 23 mg/dL (7-17); Estimated Glomerular Filt Rate 41.7 mL/min (>60); Uric Acid 8.6 mg/dL (2.5-6.2)
--- NOTE | 2019-11-05 07:29 | PM.OBPNLAB ---
Date/Time Date Patient Seen: 11/05/19 Time Patient Seen: 07:00 Pain Control Pain control: tolerating well and epidural Comments: Has been sleeping well. Continues to feel rectal pressure and is worried epidural is wearing off because second recent epidural bolus is not relieving that pressure. Pelvic Exam Dilation (cm): 9 Effacement (%): 100 station: 0 Amniotic membrane status: Leaking Comments: No cervical change or descent Contractions Date/Time contractions began: 11/04/19 @ 1230 Monitor mode: External Pitocin rate (mU/min): 23 Contraction frequency (min): 2 Contraction duration (min): 1 Contraction pattern: Regular Contraction intensity: Moderate Intrauterine tone measurement: 180 Status status: Category l Heart Rate Baseline: 130 Monitor Accelerations: Present Monitor Decelerations: Absent Monitor Variability: Moderate Assessment and Plan Assessment: other (Term primipara, AMA, preeclampsia, ROM x 21 hours without sx of infection, Active phase arrest (no cervical change in 8 hours), Cat I FHR) Plan: Comments: Recommend primary for active phase arrest. Patient is hesitant, but willing to have a consultation w/ . Consultation for primary requested.
--- NOTE | 2019-11-05 08:56 | PM.PREOP ---
Pre-operative Note COVID-19 COVID-19 status: Negative Result date/Date tested (Pos, Neg/Pending): 11/02/19 Interval Note History & Physical reviewed/Exam performed by Physician: Yes Changes to H&P: No
--- NOTE | 2019-11-05 08:57 | P.CONS_ITS ---
History of Present Illness Consult details Date Patient Seen: 11/05/19 Time Patient Seen: 07:35 Chief complaint: maternity Reason for consult: Failure to progress in labor Requesting provider: Supriya Latham Narrative: Patient is a 38-year-old 2 para 0 at 37 weeks admitted for induction for preeclampsia. She eventually progressed to 9 cm dilated but has not change her cervix for over 10 hours despite documented adequate contractions. Patient is now agreeable to proceed with section for for stage arrest. Meds Home Medications and Allergies Home Medications Medication Instructions Recorded Confirmed Type labetalol 100 mg PO 1-2XD 11/02/19 11/02/19 History Allergies Allergy/AdvReac Type Severity Reaction Status Date / Time cephalexin Allergy Mild rash Verified 11/02/19 19:09 Review of Systems Review of Systems Narrative: Patient denies headaches, scotomata, epigastric pain. Exam Vital Signs (past 8 hours): Blood pressure 146/70, pulse of 84, temperature 99.4? Narrative Exam Narrative: HEENT exam within normal limits. Lungs are clear to auscultation percussion. Heart is regular rate and rhythm no S3-S4 or murmurs. Abdomen is gravid. Fetus is vertex. Estimated weight 7 lb. Patient did not progress past 9 cm dilated. Objective Labs Result Diagrams: 11/05/19 06:51 11/05/19 06:51 Labs: Laboratory Results - last 24 hr 11/04/19 11/05/19 11/05/19 22:50 06:51 06:51 WBC 15.6 H RBC 3.95 L Hgb 11.4 L Hct 34.1 L MCV 86.5 MCH 28.8 MCHC 33.3 RDW 15.0 H Plt Count 241 229 Neut % (Auto) 78.0 H Lymph % (Auto) 13.8 L [place] % (Auto) 7.1 Eos % (Auto) 0.6 L Baso % (Auto) 0.5 Neut # (Auto) 77560 H Lymph # (Auto) 2100 [place] # (Auto) 1100 H Eos # (Auto) 100 Baso # (Auto) 100 BUN 23 H Creatinine 1.41 H Estimated GFR 41.7 L BUN/Creatinine Ratio 16.3 Uric Acid 8.6 H AST 48 H Assessment & Plan Assessment and plan (1) Preeclampsia: Status: Acute (2) Arrested active phase of labor: Status: Acute Assessment & Plan narrative: Patient with 1st stage arrest despite documented adequate contractions. Patient with mild preeclampsia. Plan is for primary low-transverse section consent form was reviewed with the patient. Risk of damage to internal structures such as bowel, bladder, ureters that could require repair or additional surgery. Risk of infection that may require antib iotics. Risk of bleeding enough to require blood transfusion. Scar tissue that might result in pain. Risk for future complications from section. Consent form was signed and the patient's questions were answered. COVID-19 COVID-19 status: Negative Result date/Date tested (Pos, Neg/Pending): 11/02/19
[2019-11-05] MEDS: CLINDAMYCIN 900 MG/50 ML PIGGYBACK 50 MG IV (09:20)
[2019-11-05] MEDS: GENTAMICIN 330 MG in SODIUM CHLORIDE 0.9% 100 ML 108.25 ML IV (09:36)
--- NOTE | 2019-11-05 09:50 | SUR.OPER ---
Supine on Padded OR bed, head on pillow, safety belt at thigh, arms secured on padded arm boards at <90 degrees abduction. Bump under right buttock. Legs uncrossed with pillow under knees, gel pad to heels, tape over blanket to lower legs.
--- NOTE | 2019-11-05 10:07 | SUR.OPER ---
live female at 0952, APGARs 7/9
--- NOTE | 2019-11-05 10:31 | P.PCN_ITS ---
Procedures Date/Time Date of procedure: 11/05/19 Time of procedure: 09:52 General Procedure description: 3Rd Mate Documentation I assisted the OB automotive internet sales consultant in the section for this patient. My responsibilities included retracting and suctioning, providing fundal pressure during delivery and following with suture during closure. Please see the OB's note for details of the surgery. Complications: none
--- NOTE | 2019-11-05 10:31 | PM.PROC.1 ---
Procedures Date/Time Date of procedure: 11/05/19 Time of procedure: 09:52 General Procedure description: Family Court Registrar Documentation I assisted the OB national facilities manager in the section for this patient. My responsibilities included retracting and suctioning, providing fundal pressure during delivery and following with suture during closure. Please see the OB's note for details of the surgery. Complications: none
[2019-11-05 10:36] VITALS: BP 117/77; PULSE 75; RESP 17; TEMP 36.4; O2SAT 93
[2019-11-05 10:41] VITALS: BP 123/80; PULSE 74; RESP 13; O2SAT 96
[2019-11-05 10:46] VITALS: BP 136/84; PULSE 80; RESP 18; O2SAT 97
--- NOTE | 2019-11-05 10:50 | P.OP_ITS ---
Operative Date/Time/Diagnoses Date of procedure: 11/05/19 Time of procedure: 10:50 Pre-op diagnosis: 1st stage arrest Post-op diagnosis: same Procedure & Clinicians Procedure: Primary low-transverse section Same procedure as scheduled: Yes Indications: 1st stage arrest Surgeon: Steffi Ruth Transformation Lead: Supriya Latham Click Yes if Unassisted: No Anesthesia Type: Spinal Operative Notes Findings: Normal tubes, ovaries, uterus. Viable female infant weighing 7 lb 2 oz direct OP position with significant molding of the head. Closure Type: primary Specimen(s): none sent Applied: catheter (Villeda) Estimated Blood Loss (mL): 400 Blood products transfused: none Procedure in detail: The patient was brought to the operating room where she underwent a spinal for anesthesia. She was placed in a supine position with a left lateral tilt. A Villeda catheter was in place. Pulsatile stockings were placed and functional throughout the case. IV gentamicin and 900 mg of IV clindamycin were given IV prior to the incision. Warming was in place. The patient was prepped and draped in usual sterile fashion. A vaginal prep was performed. A low transverse incision was made with a scalpel and the incision was carried down to the fascial layer which was incised transversely with scissors. The midline attachments are superiorly and inferiorly. Some bleeding was controlled Bovie. The rectus muscles were in the midline and the peritoneal incision was made with no damage to internal structures. The peritoneum was incised and superiorly and inferiorly. Bladder blade was placed and a bladder flap was developed and the bladder held away from the lower uterine segment. An incision was made in the uterus with the scalpel and the incision was extended with stretching. The head was elevated out of the abdomen and with fundal pressure the baby was delivered. The was bulb suctioned for clear fluid and handed off to the warmer. Cord blood was collected. The placenta delivered spontaneously with traction. The uterus was cleaned with clean laps. The uterine incision was closed in 2 layers of 1 chromic suture the first a running locking layer the second an imbricating layer. Additional [id number] sutures were required to get adequate hemostasis. The bladder peritoneum was repaired with 2-0 Vicryl suture. The gutters were cleaned of any remaining fluids and ovaries and tubes were observed to be normal. Adequate hemostasis was noted. The perineum was closed with 2-0 Vicryl suture. The fascia layer was closed with 0 Vicryl suture with 2 stitches. The incision was irrigated and adequate hemostasis noted. The incision was closed with interrupted 3-0 Vicryl sutures and then a subcuticular stitch of 4-0 Vicryl suture. Steri-Strips were placed. The uterus was massaged to remove any clots. The patient went to recovery room in good condition. Counts of instruments and sponges were correct. Complications: none Post-operative Condition: stable Disposition: other ( Center) Plan for aftercare: Routine post section with monitoring for worsening of preeclampsia
[2019-11-05 10:51] VITALS: BP 136/91; PULSE 76; RESP 15; O2SAT 97
[2019-11-05 11:00] VITALS: BP 136/88; PULSE 72; RESP 12; O2SAT 96
--- NOTE | 2019-11-05 11:04 | SUR.PHASEI ---
Patient A/O. Denies pain and nausea. Scant amount of red drainage on pad. Fundus firm at umbilicus
[2019-11-05] MEDS: METOCLOPRAMIDE 10 MG/2 ML INJ IV (13:13)
[2019-11-05 16:45] VITALS: TEMP 36.6
[2019-11-05] MEDS: KETOROLAC 30 MG/ML VIAL IV ×2 (16:45→22:23)
[2019-11-05] MEDS: OXYCODONE IR 10 MG TABLET PO ×2 (16:46→21:55)
[2019-11-05] MEDS: ONDANSETRON 4 MG/2 ML INJ IV (16:59)
[2019-11-05] MEDS: LANOLIN OINT 7 GM 1 APPLIC TOP (21:55)
[2019-11-05] MEDS: LABETALOL 100 MG TABLET PO (21:56)
[2019-11-05] MEDS: LACTATED RINGERS 1,000 ML 100 ML IV (22:23)
[2019-11-06] MEDS: KETOROLAC 30 MG/ML VIAL IV (04:08)
[2019-11-06] MEDS: OXYCODONE IR 10 MG TABLET PO ×4 (05:46→21:38)
[2019-11-06 07:05] LABS: Add Manual Diff / Slide Review NO; Basophils Absolute Auto 100 /uL (0-100); Basophils Percent Auto 0.4 % (0-2); Eosinophils Absolute Auto 200 /uL (0-450); Eosinophils Percent Auto 1.2 % (2-4); Hematocrit 28.9 % (36-46); Hemoglobin 9.7 g/dL (12.0-16.0); Lymphocytes Absolute Auto 2700 /uL (1100-4500); Lymphocytes Percent Auto 19.3 % (25-40); Mean Corpuscular HGB Conc 33.6 % (30-36); Mean Corpuscular Volume 86.4 fL (80-100); Monocytes Absolute Auto 900 /uL (0-900); Monocytes Percent Auto 6.4 % (3-14); Neutrophils Absolute Auto 10300 /uL (1500-7000); Neutrophils Percent Auto 72.7 % (50-75); Platelet Count 209 X10^3/uL (150-400); Red Blood Cell Count 3.34 X10^6/uL (4.0-5.2); Red Cell Distribution Width 15.2 % (11.6-14.8); White Blood Cell Count 14.2 X10^3/uL (4.5-11.0)
[2019-11-06] MEDS: FERROUS GLUCONATE 324 MG TABLET PO (08:19)
[2019-11-06] MEDS: PRENATAL VIT,CALC/IRON/FOLIC 1 TABLET 1 TAB PO (08:19)
[2019-11-06 08:20] VITALS: BP 123/73; PULSE 83
[2019-11-06] MEDS: LABETALOL 100 MG TABLET PO ×2 (08:20→21:38)
[2019-11-06] MEDS: IBUPROFEN 600 MG TABLET PO ×3 (09:47→21:38)
[2019-11-06] MEDS: ACETAMINOPHEN 325 MG TABLET 650 MG PO (12:52)
--- NOTE | 2019-11-06 13:13 | PM.OBPN.1 ---
Subjective - OB Subjective Patient comments: incisional pain (But tolerable) [place] baby status: nursing well feeding status: exclusively breast feeding Date Patient Seen: 11/06/19 Time Patient Seen: 11:30 Interval history: Patient is postoperative day 1 Primary section for 1st stage arrest. Patient was admitted for induction for preeclampsia. Patient denies any headaches, scotomata, epigastric pain. She is urinating and ambulating. She is passing gas. Her incision does have pain but she is doing well. She is breast-feeding without difficulty. Exam Vital Signs (past 8 hours): Highest blood pressure in the last 24 hours 157/92 all others are in the normal range. temperature 98.1?- 11/06/19 08:20 Pulse Rate 83 Blood Pressure 123/73 Oxygen Delivery Method Room Air Oxygen Flow Rate 2 Narrative Exam Narrative: Abdomen is soft, nontender. Uterus is firm, at U, appropriately tender. Dressing is clean, dry, intact. Mild lochia. Extremities without edema and nontender. Objective Labs Result Diagrams: 11/06/19 06:45 11/05/19 06:51 Labs: Laboratory Results - last 24 hr 11/06/19 11/06/19 06:45 06:45 WBC 14.2 H RBC 3.34 L Hgb 9.7 L Hct 28.9 L MCV 86.4 MCH 29.0 MCHC 33.6 RDW 15.2 H Plt Count 209 Neut % (Auto) 72.7 Lymph % (Auto) 19.3 L [place]th[place]omew % (Auto) 6.4 Eos % (Auto) 1.2 L Baso % (Auto) 0.4 Neut # (Auto) 50759 H Lymph # (Auto) 2700 [place]th[place]omew # (Auto) 900 Eos # (Auto) 200 Baso # (Auto) 100 Maternal Bleed Negative Assessment & Plan Assessment and Plan (1) Preeclampsia: Status: Acute (2) Arrested active phase of labor: Status: Acute (3) Delivery by section using transverse incision of lower segment of uterus: Status: Acute Plan day: 1 plan OB: routine postop care Comments: No evidence of preeclampsia. Will continue to monitor. Time Spent With Patient Time: Total time spent is greater than 50% in coordination of care (as documented) at patient's floor/unit and/or counseling patient: Time with patient: less than 15 minutes
[2019-11-06 21:38] VITALS: BP 129/75; PULSE 85
[2019-11-07] MEDS: OXYCODONE IR 10 MG TABLET PO ×4 (02:15→17:08)
[2019-11-07] MEDS: RHO(D) IMMUNE GLOBULIN 1,500 UNIT SYRINGE 1500 UNIT IM (03:19)
[2019-11-07] MEDS: IBUPROFEN 600 MG TABLET PO ×2 (06:42→18:32)
[2019-11-07 09:32] VITALS: BP 132/75
[2019-11-07] MEDS: LABETALOL 100 MG TABLET PO (09:32)
[2019-11-07] MEDS: FERROUS GLUCONATE 324 MG TABLET PO (09:32)
[2019-11-07] MEDS: PRENATAL VIT,CALC/IRON/FOLIC 1 TABLET 1 TAB PO (09:32)
[2019-11-07] MEDS: DOCUSATE 250 MG CAPSULE PO (09:33)
[2019-11-07] MEDS: SIMETHICONE 80 MG TABLET PO ×2 (09:33→18:32)
[2019-11-07] MEDS: ACETAMINOPHEN 325 MG TABLET 650 MG PO (09:34)
--- NOTE | 2019-11-07 14:02 | P.DS_ITS ---
Discharge Providers Provider Date of admission: 11/02/19 18:10 Discharge Date: 11/07/19 Primary care physician: Dot Caballero PA-C Consults: 11/02/19 18:28 Consult to Anesthesiology Urgent Comment: Consulting Provider: Anesthesiologist Reason for consultation: pain relief if requested Has provider been notified: No 11/05/19 11:52 Consult to Dog Beautician Routine Comment: Discharge provider: Supriya Latham CNM Summary Discharge Diagnosis (1) Preeclampsia: Status: Acute Problem Details: Delivered, BPs stable on labetalol 100mg BID, plan to continue for 2 weeks (2) Arrested active phase of labor: Status: Acute (3) Delivery by section using transverse incision of lower segment of uterus: Status: Acute Time Spent with Patient Time attestation: Total time spent providing and/or coordinating discharge services: Objective Labs Result Diagrams: 11/06/19 06:45 11/05/19 06:51 Exam Vital Signs (past 8 hours): - 11/07/19 09:32 Blood Pressure 132/75 Oxygen Delivery Method Room Air Oxygen Flow Rate 2 Other: Fundus firm @ u-1, lochia light, no clots. Aquacel dressing in place w/ small drainage, previously marked, that does not extend beyond the markings. no redness visible. Extrem Right lower extremity: edema Details: pitting and 2+ Left lower extremity: edema Details: pitting and 2+ Psych Appearance: grossly normal and well kempt Speech and Movement: speech and movement normal Affect: normal affect Attitude: cooperative Other: Patient had episode this am of waking shivering, in pain. RN provided pain medication, warm blankets and increased temp in room. Single/next temp was 100.5 that resolved after removing heated blankets. Patient has remained afebrile since and we will continue to monitor until after dinner. Low concern for infection. Discharge Plan Discharge Plan Patient Disposition: Home Discharge orders & Medications Prescriptions: New acetaminophen 325 mg Tablet 650 mg PO Q6HR PRN (Reason: Fever/Mild Pain (1-3)) 14 Days Qty: 60 RF: 2 ibuprofen 600 mg Tablet 600 mg PO Q6HR PRN (Reason: Fever/Mild Pain (1-3)) 14 Days Qty: 60 RF: 2 labetalol 100 mg Tablet 100 mg PO BID 12 Days Qty: 24 RF: 0 docusate sodium 250 mg Capsule 250 mg PO DAILY 14 Days Qty: 14 RF: 0 oxycodone 10 mg Tablet 10 mg PO Q4HR PRN (Reason: Pain, Severe (7-10)) 14 Days Qty: 20 RF: 0 Discontinued labetalol 100 mg tablet 100 mg PO 1-2XD RF: 0 Follow up/Referrals: Steffi Ruth MD [Physician] - (Follow-up in 7 days) Supriya Latham CNM [Advanced [employer] History Professor] - (Follow-up by Telehealth 11/19/19 @ 1100 Follow-up in office 12/17/19 @ 1100) Dot Howard PA-C [Primary Care Provider] - Diet/Activity/Treatments Diet: Diet as Tolerated and Regular Activity: pelvic rest x 6 weeks Skin/Wound/Dressing Care Report to your healthcare provider any signs of infection, such as:: chills, fever, increased pain, unusual drainage and unusual redness Dressing: Aquacel: do not touch, may shower Visit Report/Discharge Packet Instructions: DI for Depression Discharge Data Primary Care Provider: Dot Howard
[2019-11-07 17:08] VITALS: BP 128/69; PULSE 87; RESP 17; TEMP 37
== END 2019-11-07 19:30 | disposition home or self-care (01) | DRG 788 ==
PROVIDERS: Anesthesiology; Specialist; Admitting Provider Nurse Practitioner Obstetrics & Gynecology; Referring Provider Nurse Practitioner Obstetrics & Gynecology; Visit Provider Nurse Practitioner Obstetrics & Gynecology
PROC: 10D00Z1 Extraction of Products of Conception, Low, Open Approach (ICD-10-PCS; CPT 59514; principal; 2019-11-05 09:45)
DX: O14.94 Unspecified pre-eclampsia, complicating childbirth (principal); O60.14X0 Preterm labor third trimester with preterm delivery third trimester, not applicable or unspecified; O62.1 Secondary uterine inertia; Z3A.36 36 weeks gestation of pregnancy; Z37.0 Single live birth; Z11.59 Encounter for screening for other viral diseases
CPT/HCPCS: 01967; 01968; 36415; 59050; 59200; 59514; 82570; 84156; 84450; 84550; 85025; 85049; 85461; 86850; 86900; 86901; 87635; 99253; G0379; J1885; J2250; J2274; J2405; J2590; J2704; J2765; J2790; J3010

== ENCOUNTER → 2020-11-01 11:53 | Outpatient (CLI) | payer OTHER, SELFPAY ==
[2020-11-01 12:33] LABS: COVID19 -Nasal RAPID Negative (Negative)
== END ==
PROVIDERS: Visit Provider Physician Assistant
DX: Z20.822 Contact with and (suspected) exposure to COVID-19 (principal)
CPT/HCPCS: 87635

== ENCOUNTER → 2021-08-07 11:19 | Outpatient (CLI) | payer OTHER, SELFPAY ==
[2021-08-07 11:53] LABS: Add Manual Diff / Slide Review NO; Basophils Absolute Auto 100 /uL (0-100); Eosinophils Absolute Auto 400 /uL (0-450); Eosinophils Percent Auto 4.7 % (2-4); Hematocrit 40.3 % (36-46); Hemoglobin 13.9 g/dL (12.0-16.0); Lymphocytes Absolute Auto 3300 /uL (1100-4500); Lymphocytes Percent Auto 42.2 % (25-40); Mean Corpuscular HGB Conc 34.5 % (30-36); Mean Corpuscular Hemoglobin 30.1 PG (26-34); Mean Corpuscular Volume 87.2 fL (80-100); Monocytes Absolute Auto 500 /uL (0-900); Monocytes Percent Auto 6.7 % (3-14); Neutrophils Absolute Auto 3500 /uL (1500-7000); Neutrophils Percent Auto 45.4 % (50-75); Platelet Count 286 X10^3/uL (150-400); Red Blood Cell Count 4.62 X10^6/uL (4.0-5.2); Red Cell Distribution Width 13.4 % (11.6-14.8); White Blood Cell Count 7.8 X10^3/uL (4.5-11.0)
[2021-08-07 12:05] LABS: Alanine Aminotransferase 19 IU/L (<35); Albumin 4.9 g/dL (3.5-5.0); Albumin Globulin Ratio 1.5 (1.0-2.8); Alkaline Phosphatase 80 U/L (38-126); Aspartate Aminotransferase 25 IU/L (14-36); Bilirubin Total 0.4 mg/dL (0.2-1.3); Blood Urea Nitrogen 20 mg/dL (7-17); Calcium 9.4 mg/dL (8.4-10.2); Carbon Dioxide 29 mmol/L (22-32); Chloride 105 mmol/L (98-107); Estimated Glomerular Filt Rate > 60 mL/min (>60); Globulin 3.3 g/dL (1.7-4.1); Glucose 96 mg/dL (70-100); HEMOLYSIS < 15 (0-50); Potassium 4.3 mmol/L (3.4-5.1); Sodium 140 mmol/L (137-145); Total Protein 8.2 g/dL (6.3-8.2)
[2021-08-07 12:49] LABS: TSH w/ Reflex to FT4 1.11 uIU/mL (0.47-4.68)
== END ==
PROVIDERS: PCP Family Medicine; Referring Provider Family Medicine; Visit Provider Family Medicine
DX: F41.1 Generalized anxiety disorder (principal); E66.9 Obesity, unspecified
CPT/HCPCS: 36415; 80053; 84443; 85025

== ENCOUNTER → 2021-11-10 11:31 | Outpatient (CLI) | payer OTHER, SELFPAY ==
[2021-11-10 13:52] LABS: HCG Quantitative /Beta subunit < 2.4 mIU/mL
== END ==
PROVIDERS: PCP Family Medicine; Referring Provider Family Medicine; Visit Provider Family Medicine
DX: N64.4 Mastodynia (principal)
CPT/HCPCS: 36415; 84702

== ENCOUNTER → 2022-01-30 10:46 | Outpatient (CLI) | payer OTHER, SELFPAY | PROVIDERS: PCP Family Medicine; Visit Provider Family Medicine | DX: J02.9 Acute pharyngitis, unspecified (principal) | CPT/HCPCS: 87070; 87077; 87147 ==

== ENCOUNTER → 2022-02-07 10:16 | Outpatient (CLI) | payer SELFPAY ==
--- NOTE | 2022-02-07 10:18 | DI.RAD.S_ITS ---
PROCEDURE: XR DEXA BODY COMPOSITION COMPARISON: None. INDICATIONS: body composition FINDINGS/IMPRESSION: A body composition report was generated and given to the patient. The specific results of the exam are retained in the PACS archive for future reference if needed. Dictated by: Jass Jacobson M.D. on 02/07/2022 at 14:58 Approved by: Jass Jacobson M.D. on 02/07/2022 at 15:01
== END ==
PROVIDERS: PCP Family Medicine; Referring Provider Family Medicine; Visit Provider Family Medicine
DX: E66.9 Obesity, unspecified (principal)

== ENCOUNTER → 2022-07-15 09:21 | Outpatient (CLI) | payer OTHER, SELFPAY ==
[2022-07-15 10:06] LABS: Influenza A - CEPHEID Flu A NEGATIVE (NEGATIVE); Influenza B - CEPHEID Flu B NEGATIVE (NEGATIVE); Respiratory Syncytial Virus Negative (Negative)
[2022-07-15 10:29] LABS: COVID-19 CEPHEID 4-PLEX PCR Negative (Negative)
== END ==
PROVIDERS: PCP Family Medicine; Visit Provider Nurse Practitioner Family
DX: R05.1 Acute cough (principal); Z20.822 Contact with and (suspected) exposure to COVID-19
CPT/HCPCS: 0241U

== ENCOUNTER → 2023-01-24 11:30 | Outpatient (CLI) | payer OTHER, SELFPAY ==
[2023-01-24 11:50] LABS: Add Manual Diff / Slide Review NO; Basophils Absolute Auto 100 /uL (0-100); Basophils Percent Auto 0.9 % (0-2); Eosinophils Absolute Auto 500 /uL (0-450); Eosinophils Percent Auto 5.2 % (2-4); Hematocrit 41.5 % (36-46); Hemoglobin 14.1 g/dL (12.0-16.0); Lymphocytes Absolute Auto 3100 /uL (1100-4500); Lymphocytes Percent Auto 34.9 % (25-40); Mean Corpuscular HGB Conc 33.9 % (30-36); Mean Corpuscular Hemoglobin 29.3 PG (26-34); Mean Corpuscular Volume 86.4 fL (80-100); Monocytes Absolute Auto 500 /uL (0-900); Neutrophils Absolute Auto 4800 /uL (1500-7000); Platelet Count 308 X10^3/uL (150-400)
[2023-01-24 12:05] LABS: Alanine Aminotransferase 27 IU/L (<35); Albumin 4.6 g/dL (3.5-5.0); Albumin Globulin Ratio 1.4 (1.0-2.8); Alkaline Phosphatase 106 U/L (38-126); Aspartate Aminotransferase 25 IU/L (14-36); BUN Creatinine Ratio 22.4 (6-22); Bilirubin Total 0.5 mg/dL (0.2-1.3); Blood Urea Nitrogen 15 mg/dL (7-17); Calcium 9.4 mg/dL (8.4-10.2); Carbon Dioxide 25 mmol/L (22-32); Chloride 101 mmol/L (98-107); Cholesterol 290 mg/dL (140-199); Estimated Glomerular Filt Rate > 60 mL/min (>60); Globulin 3.4 g/dL (1.7-4.1); Glucose 103 mg/dL (70-100); HDL Cholesterol 71 mg/dL (40-60); HEMOLYSIS < 15 (0-50); LDL Cholesterol Calculated 175 mg/dL (<100); Potassium 4.2 mmol/L (3.4-5.1); Sodium 137 mmol/L (137-145); Triglycerides 218 mg/dL (35-150)
[2023-01-24 13:29] LABS: TSH w/ Reflex to FT4 1.79 uIU/mL (0.47-4.68)
[2023-01-24 14:25] LABS: Creatinine Urine Random 67.8 mg/dL
[2023-01-24 14:28] LABS: Microalbumi Creatinin Ratio Ur 17.6 ug/mg CR (<30); Microalbumin Urine Random 1.2 mg/dL (0-1.6)
== END ==
PROVIDERS: PCP Family Medicine; Referring Provider Family Medicine; Visit Provider Family Medicine
DX: E78.5 Hyperlipidemia, unspecified (principal); R73.03 Prediabetes; E66.9 Obesity, unspecified; M62.08 Separation of muscle (nontraumatic), other site
CPT/HCPCS: 36415; 80053; 80061; 82043; 82570; 84443; 85025; 99214

== ENCOUNTER → 2023-01-28 10:31 | Outpatient (CLI) | payer OTHER, SELFPAY ==
--- NOTE | 2023-01-28 10:33 | DI.CT.S_ITS ---
PROCEDURE: CT ABDOMEN PELVIS W CON INDICATIONS: diastasis recti TECHNIQUE: After the administration of intravenous contrast, axial sections acquired from the lung bases to the pubic symphysis. Coronal and sagittal reformats were performed. For radiation dose reduction, the following was used: automated exposure control, adjustment of mA and/or kV according to patient size. COMPARISON: None. FINDINGS: Lung bases: Unremarkable. ABDOMEN: Liver: Unremarkable. Gallbladder: Unremarkable. Biliary ducts: Unremarkable. Pancreas: Unremarkable. Spleen: Unremarkable. Adrenal Glands: Unremarkable. Kidneys and Ureters: No hydronephrosis. Stomach and Bowel: No bowel obstruction. Peritoneum: No abnormal intraperitoneal fluid. No free air. Ventral Wall: Appears to be diastasis of the rectus musculature with approximately 4.5 cm separation of muscle. No bernard abdominal wall hernia identified. Abdominal Nodes: No retroperitoneal or mesenteric adenopathy by size criteria. Vessels: Aorta and inferior vena cava are normal in size. PELVIS: Pelvic Organs: Unremarkable. Bladder: Unremarkable. Pelvic Nodes: No enlarged lymph nodes. Bones: Multilevel degenerative change of the visualized spine. IMPRESSION: No definite abdominal wall hernia identified. Dictated by: Chau Bergman M.D. on 01/28/2023 at 19:49 Approved by: Chau Bergman M.D. on 01/28/2023 at 20:12
== END ==
PROVIDERS: PCP Family Medicine; Referring Provider Surgery; Visit Provider Surgery
DX: M62.08 Separation of muscle (nontraumatic), other site (principal)
CPT/HCPCS: 74177; Q9967

== ENCOUNTER → 2023-07-11 12:33 | Outpatient (CLI) | payer OTHER, SELFPAY ==
[2023-07-11 14:15] LABS: HEMOLYSIS < 15 (0-50); Iron 129 ug/dL (37-170)
[2023-07-11 14:36] LABS: Free T4, Direct Thyroxine 1.16 ng/dL (0.78-2.19)
[2023-07-11 14:41] LABS: Percent Iron Saturation 29 % (15-50); Total Iron Binding Capacity 442 ug/dL (265-497); Transferrin 388 mg/dL (206-381)
[2023-07-11 14:49] LABS: Thyroid Stimulating Hormone 1.52 uIU/mL (0.47-4.68)
== END ==
LOC: LAB 12:34
PROVIDERS: PCP Family Medicine; Referring Provider Obstetrics & Gynecology; Visit Provider Obstetrics & Gynecology
DX: L65.9 Nonscarring hair loss, unspecified (principal)
CPT/HCPCS: 36415; 83540; 83550; 84439; 84443